=== PATIENT | female | born 1975 ===

== ENCOUNTER 2022-03-30 23:47 | Inpatient (IN) | payer OTHER ==
[~2022-03-30] VITALS: Ht 154.9 cm; Wt 69.5 kg
[2022-03-31 01:05] LABS: BASOPHILS ABSOLUTE AUTO 0.02 K/mm3 (0.00-0.23); BASOPHILS PERCENT AUTO 0 % (0-2); EOSINOPHILS ABSOLUTE AUTO 0.01 K/mm3 (0.00-0.68); EOSINOPHILS PERCENT AUTO 0 % (0-6); Hematocrit 34.6 % (33.0-51.0); Hemoglobin 12.1 g/dL (11.5-16.0); IMMATURE GRAN ABSOLUTE AUTO 0.14 K/mm3 (0.00-0.10); IMMATURE GRAN PERCENT AUTO 2 % (0-1); LYMPHOCYTES ABSOLUTE AUTO 0.79 K/mm3 (0.84-5.20); LYMPHOCYTES PERCENT AUTO 9 % (21-46); MONOCYTES ABSOLUTE AUTO 0.63 K/mm3 (0.16-1.47); MONOCYTES PERCENT AUTO 7 % (4-13); Mean Corpuscular HGB 25.6 pg (26.0-34.0); Mean Corpuscular Volume 73 fL (80-100); Mean Platelet Volume 11.1 fL (9.1-12.4); NEUTROPHILS ABSOLUTE AUTO 7.71 K/mm3 (1.96-9.15); NEUTROPHILS PERCENT AUTO 83 % (41-73); NRBC ABSOLUTE 0.13 K/mm3 (0.00-0.02); NRBC Auto 1.4 /100 WBC (0.0-0.2); Platelet Count 113 K/mm3 (150-400); RDW Coefficient Variation 20.9 % (11.7-14.2); RDW Standard Deviation 43.4 fL (35.1-46.3); Red Blood Cell Count 4.72 M/mm3 (3.80-5.20)
[2022-03-31 01:22] LABS: Alanine Aminotransfer (ALT/SGP 186 U/L (12-78); Albumin, Blood 3.3 g/dL (3.4-5.0); Albumin/Globulin Ratio 1.1 (0.8-1.8); Alk Phos 192 U/L (50-136); Anion Gap 19 mmol/L (6-16); Aspartate Aminotrans (AST/SGOT 266 U/L (12-37); Bilirubin, Total 3.8 mg/dL (0.1-1.0); Blood Urea Nitrogen 7 mg/dL (8-24); Bun/Creatinine Ratio 5.6 (12.0-20.0); CO2, Blood 23 mmol/L (21-32); Chloride, Blood 87 mmol/L (98-108); Creatinine, Blood 1.26 mg/dL (0.40-1.00); Glomerular Filtration Rate 46 (60-); Glucose, Blood 158 mg/dL (70-99); Potassium, Blood 2.7 mmol/L (3.5-5.5); Sodium, Blood 129 mmol/L (136-145); Total Protein, Blood 6.3 g/dL (6.4-8.2)
[2022-03-31 01:23] LABS: Magnesium, Blood 1.1 mg/dL (1.6-2.4)
[2022-03-31 02:37] LABS: Ethanol (Alcohol), Blood, Med <3 mg/dL
[2022-03-31 08:14] LABS: Anion Gap 14 mmol/L (6-16); Blood Urea Nitrogen 7 mg/dL (8-24); Bun/Creatinine Ratio 7.2 (12.0-20.0); CO2, Blood 24 mmol/L (21-32); Calcium, Blood 7.4 mg/dL (8.5-10.1); Chloride, Blood 95 mmol/L (98-108); Creatinine, Blood 0.98 mg/dL (0.40-1.00); Glomerular Filtration Rate >60 (60-); Glucose, Blood 143 mg/dL (70-99); Potassium, Blood 2.9 mmol/L (3.5-5.5); Sodium, Blood 133 mmol/L (136-145)
[2022-03-31 12:26] LABS: Anion Gap 13 mmol/L (6-16); Blood Urea Nitrogen 7 mg/dL (8-24); Bun/Creatinine Ratio 7.1 (12.0-20.0); CO2, Blood 25 mmol/L (21-32); Chloride, Blood 96 mmol/L (98-108); Creatinine, Blood 0.98 mg/dL (0.40-1.00); Glomerular Filtration Rate >60 (60-); Glucose, Blood 122 mg/dL (70-99); Potassium, Blood 2.9 mmol/L (3.5-5.5); Sodium, Blood 134 mmol/L (136-145)
--- NOTE | 2022-03-31 16:09 | NUR ---
SHIFT SUMMARY Pt arrived from the ER and was assisted over to the bed. She opens her eyes and mumbles her name but is not oriented and she is very fatigued. There was a consult for Namita and it was confirmed that her facesheet was placed in his folder in the ER. Dr Marcelo came to see the pt and ordered a yadav to be placed which was done and the UA was sent to the lab. She has a rash on her abdominal fold and some barrier cream was applied. Poison control called for an update and asked that another EKG be done since her last one showed a prolonged QT. They said they would call back in a few hours for another update. EKG was done and per television repairman she is is NSR in the 70's-80's. She is on camera monitoring for safety and has the bed alarm on. As of now she is sleeping and has not attempted to climb out of bed but per report she was combative in the ER. She can follow some directions at times. She has her call light in reach and is resting in bed.
[2022-03-31 17:58] LABS: U Amphetamine Screen Not Detected; U Barbituate Screen Not Detected; U Benzodiazapine Screen DETECTED; U Buprenorphine Screen DETECTED; U Cannabinoids Screen Not Detected; U Cocaine Screen Not Detected; U Methadone Screen Not Detected; U Methamphetamine Screen Not Detected; U Opiates Screen Not Detected; U Oxycodone Screen Not Detected; U Phencyclidine Screen Not Detected; U Propoxyphene Screen Not Detected
[2022-04-01 04:00] LABS: Hematocrit 29.2 % (33.0-51.0); Hemoglobin 9.8 g/dL (11.5-16.0); Mean Corpuscular HGB 25.9 pg (26.0-34.0); Mean Corpuscular HGB Conc 33.6 g/dL (31.5-36.5); Mean Corpuscular Volume 77 fL (80-100); Mean Platelet Volume 10.9 fL (9.1-12.4); NRBC ABSOLUTE 0.03 K/mm3 (0.00-0.02); NRBC Auto 0.4 /100 WBC (0.0-0.2); Platelet Count 92 K/mm3 (150-400); RDW Coefficient Variation 21.9 % (11.7-14.2); Red Blood Cell Count 3.79 M/mm3 (3.80-5.20); White Blood Cell Count 6.99 K/mm3 (4.00-11.30)
[2022-04-01 04:25] LABS: Alanine Aminotransfer (ALT/SGP 125 U/L (12-78); Albumin, Blood 2.7 g/dL (3.4-5.0); Alk Phos 157 U/L (50-136); Anion Gap 8 mmol/L (6-16); Aspartate Aminotrans (AST/SGOT 141 U/L (12-37); Bilirubin, Total 1.9 mg/dL (0.1-1.0); Blood Urea Nitrogen 6 mg/dL (8-24); Bun/Creatinine Ratio 7.3 (12.0-20.0); CO2, Blood 27 mmol/L (21-32); Calcium, Blood 7.7 mg/dL (8.5-10.1); Chloride, Blood 104 mmol/L (98-108); Creatinine, Blood 0.82 mg/dL (0.40-1.00); Globulin, Blood 2.6 g/dL (2.2-4.0); Glomerular Filtration Rate >60 (60-); Glucose, Blood 95 mg/dL (70-99); Magnesium, Blood 2.6 mg/dL (1.6-2.4); Potassium, Blood 2.8 mmol/L (3.5-5.5); Sodium, Blood 139 mmol/L (136-145); Thyroid Stimulating Hormone 0.977 uIU/mL (0.360-4.800); Total Protein, Blood 5.3 g/dL (6.4-8.2)
--- NOTE | 2022-04-01 07:13 | NUR ---
PT SUMMARY PT WOKE UP SEVERAL HOURS INTO SHIFT AND WANTED TO EAT AND DRINK. DID WELL SITTING UP AT SIDE OF BED IN CHAIR TO EAT DINNER. WAS DROWSY BUT ABLE TO FINISH MEAL. UNSTEADY ON FEET, NEEDED TWO PERSON ASSIST. VERBALIZED UNDERSTANDING OF INSTRUCTIONS THROUGH SHIFT FROM THIS RN DESPITE TANGENTIAL COMMENTS AND REMARKS. PT FREQUENTLY JOKES. HAS SOME DIFFICULTY EXPLAINING PAST EVENTS OR RECALLING HOW SHE CAME TO BE IN HOSPITAL. THOUGHT SHE WAS AT [facility]. DENIES PAIN. LETHARGIC. HAD AN EPISODE OF SIGNIFICANT APNEA IN THE NIGHT, SATS FELL INTO 60'S. PT WOKEN UP BY STAFF, SATS BACK TO 97-98% ON RA.
--- NOTE | 2022-04-01 08:00 | NUR ---
NURSING PCU DAYSHIFT: Assumed care of pt at approx 0700. Arouses to verbal stimuli, answers some questions appropriately though not oriented to date/location, impulsive at times but redirectable, able to converse but nonsensical at times. General weakness noted w/mild tremors, CIWA 12 at initial assessment. Denies pain/discomfort at rest. Scattered abrasions to LE's and lips, excoriation below pannus, no pressure ulcers noted. Tele in place, NSR, no c/o CP/pressure, SBP 130's, no noted edema, pulses palp. L/S cta t/o, O2 sat mid 90's on RA, no noted cough/dyspnea. Abd SNT, BT+, FC in place draining dark yellow urine. PIV x2, NS infusing @ 100cc/hr w/K+ rider as per d/o. No s/s of acute distress at time of a.m. assessment. Bed/chair alarms in use for safety purposes. OOB to BSC, shower, and chair w/one staff assist. Update provided to poison control, f/u EKG completed to assess QT which is noted to have improved. Seen by PMD, new d/o received, IVF discontinued, changed to medical status w/o tele, f/u K+ drawn and awaiting results, FC dc'd. Pt denies any current needs, call light in reach, cont to monitor for any changes.
[2022-04-01 13:11] LABS: Percent Saturation 21.3 % (15.0-50.0)
[2022-04-01 13:12] LABS: Potassium, Blood 3.1 mmol/L (3.5-5.5)
--- NOTE | 2022-04-01 17:37 | NUR ---
NURSING PCU DAYSHIFT SUMMARY: No significant changes noted t/o the shift, respiratory and cardiac status remain stable. Seen by PMD, new d/o received. F/U K+ drawn after rider completed, results reviewed w/PMD and medications administered as ordered. EKG completed, QTc improved, poison control updated. Seen by psychology consult, medications ordered, dictation reviewed. Changed to medical status w/o tele, awaiting bed assignment. Though tearful after psych consult, pt has been in good spirits and interactive w/the staff t/o the afternoon. Ambulated t/o unit w/o difficulty using FWW. Pt denies any current needs or questions regarding plan of care. Call light in reach and pt has been using w/o difficulty. Cont to monitor until rpt is given to ALVARO RN.
--- NOTE | 2022-04-01 20:48 | NUR ---
HYPERTENSION PROVIDER NOTIFIED THAT PATIENTS BP IS ELEVATED AND HE DID NOT WANT TO START ANYTHING NEW TONIGHT BUT WANTED DAYSHIFT TO ADDRESS IT. TRUCK LEASING MANAGER TOBY NOTIFIED.
[2022-04-02 04:35] LABS: Hematocrit 29.6 % (33.0-51.0); Hemoglobin 9.8 g/dL (11.5-16.0); Mean Corpuscular HGB 26.3 pg (26.0-34.0); Mean Corpuscular HGB Conc 33.1 g/dL (31.5-36.5); Mean Corpuscular Volume 80 fL (80-100); Mean Platelet Volume 10.6 fL (9.1-12.4); NRBC ABSOLUTE 0.09 K/mm3 (0.00-0.02); NRBC Auto 1.3 /100 WBC (0.0-0.2); Platelet Count 93 K/mm3 (150-400); RDW Coefficient Variation 23.3 % (11.7-14.2); RDW Standard Deviation 52.7 fL (35.1-46.3); Red Blood Cell Count 3.72 M/mm3 (3.80-5.20); White Blood Cell Count 6.98 K/mm3 (4.00-11.30)
[2022-04-02 04:58] LABS: Alanine Aminotransfer (ALT/SGP 116 U/L (12-78); Albumin, Blood 2.7 g/dL (3.4-5.0); Alk Phos 133 U/L (50-136); Anion Gap 6 mmol/L (6-16); Aspartate Aminotrans (AST/SGOT 136 U/L (12-37); Bilirubin, Total 0.9 mg/dL (0.1-1.0); Blood Urea Nitrogen 10 mg/dL (8-24); Bun/Creatinine Ratio 14.8 (12.0-20.0); CO2, Blood 26 mmol/L (21-32); Calcium, Blood 8.7 mg/dL (8.5-10.1); Chloride, Blood 108 mmol/L (98-108); Creatinine, Blood 0.68 mg/dL (0.40-1.00); Globulin, Blood 2.8 g/dL (2.2-4.0); Glomerular Filtration Rate >60 (60-); Glucose, Blood 85 mg/dL (70-99); Potassium, Blood 3.7 mmol/L (3.5-5.5); Sodium, Blood 140 mmol/L (136-145); Total Protein, Blood 5.5 g/dL (6.4-8.2)
--- NOTE | 2022-04-02 06:05 | NUR ---
CLIENT SERVER PROGRAMMER SUMMARY PT IS ALERT AND ORIENTED BUT MAKES COMMENTS DURING CONVERSATION THAT ARE NOT APPROPRIATE. PT ASKING ME ABOUT MY CLONE AND BEING PARANOID ABOUT OTHER STAFF. CIWA'S REMAIN VERY LOW W NO PHYSICAL S/S OF WITHDRAWL. PT AMBULATING W LITTLE TO NO ASSISTANCE THIS SHIFT. BP ELEVATED AT START OF THE SHIFT BUT WNL THIS AM. O2 SATS >90% ON RM AIR. PT COOPERATIVE W CARE THIS SHIFT. WILL REPORT TO ONCOMING RN.
--- NOTE | 2022-04-02 17:32 | NUR ---
SHIFT SUMMARY; ASSUMED CARE AT 0700. A/A/OX4. COOPERATIVE WITH CARE BUT FORGETFUL AND NEEDS REDIRECTED SEVERAL TIMES DURING SHIFT. UNSTEADY ON FEET, DISCUSSED NEEDING TO USE CALL LIGHT. BED ALARM ON. ASKS FOR SEROQUEL DURING SHIFT MULTIPLE TIMES. ASSESSED FOR ANXIETY AND CIWA PROTOCTOL FOLLOWED, MEDICATED MEDICALLY INDICATED. VSS, WILL CONTINUE TO MONITOR AND TREAT UNTIL CHANGE OF SHIFT.
[2022-04-03 04:06] LABS: Hematocrit 28.1 % (33.0-51.0); Hemoglobin 9.7 g/dL (11.5-16.0); Mean Corpuscular HGB 28.3 pg (26.0-34.0); Mean Corpuscular HGB Conc 34.5 g/dL (31.5-36.5); Mean Corpuscular Volume 82 fL (80-100); Mean Platelet Volume 10.7 fL (9.1-12.4); Platelet Count 105 K/mm3 (150-400); RDW Coefficient Variation 24.6 % (11.7-14.2); RDW Standard Deviation 49.1 fL (35.1-46.3); Red Blood Cell Count 3.43 M/mm3 (3.80-5.20); White Blood Cell Count 5.27 K/mm3 (4.00-11.30)
[2022-04-03 04:35] LABS: Albumin, Blood 2.5 g/dL (3.4-5.0); Albumin/Globulin Ratio 0.9 (0.8-1.8); Bilirubin, Total 0.7 mg/dL (0.1-1.0); Bun/Creatinine Ratio 22.8 (12.0-20.0); Calcium, Blood 8.7 mg/dL (8.5-10.1); Creatinine, Blood 0.66 mg/dL (0.40-1.00); Globulin, Blood 2.8 g/dL (2.2-4.0); Potassium, Blood 3.6 mmol/L (3.5-5.5); Total Protein, Blood 5.3 g/dL (6.4-8.2)
--- NOTE | 2022-04-03 06:13 | NUR ---
CLEANER LABORATORY EQUIPMENT SUMMARY PT BEGAN SHIFT VERY EMOTIONAL BEING TEARFUL AND PARANOID ABOUT CERTAIN STAFF MEMBERS. PT CALMER AFTER 2099 SEROQUEL GIVEN BUT CONTINUED TO BE REALLY ANXIOUS SO PRN SEROQUEL GIVEN. CIWA'S MOSTLY AT A 2 BUT WAS A 7 AT START OF THE SHIFT DUE TO ANXIETY SO ONE DOSE OF LORAZEPAM GIVEN. PT ABLE TO SLEEP FOR GOOD PART OF THIS SHIFT GETTING UP SEVERAL TIMES TO USE THE RESTROOM. BP STILL MODERATELY HIGH BUT STABLE. O2 SATS >92% ON RM AIR. WILL REPORT TO ONCOMING RN.
[2022-04-03 07:06] LABS: NRBC ABSOLUTE 0.04 K/mm3 (0.00-0.02); NRBC Auto 0.7 /100 WBC (0.0-0.2)
--- NOTE | 2022-04-03 11:14 | NUR ---
REPORT GIVEN TO SABINE DODSON ON MEDICAL FLOOR TO ASSUME CARE FOR IN HOUSE TRANSFER.
--- NOTE | 2022-04-03 12:00 | NUR ---
ARRIVAL TO 324 PT ARRIVED FROM PCU 3 IN W/C. TRANSFERRED IND TO BED. ORIENTED TO ROOM/CALL LIGHT/PHONE. IND IN ROOM. INSTRUCTED TO CALL FOR HELP WHEN WALKING AROUND UNIT. CALL LIGHT IN REACH.
--- NOTE | 2022-04-03 13:55 | NUR ---
AM ASSESSMENT I AGREE WITH AND WAS PRESENT DURING THE STUDENT RN ISAÍAS'S AM ASSESSMENT, AND HAVE REVIEWED AND AGREE WITH HER DOCUMENTATION ON THIS PATIENT
--- NOTE | 2022-04-03 16:36 | NUR ---
SHIFT SUMMARY PT A/O X4. CALM AND COOPERATIVE WITH CARE. PT HAD A EPISODE OF ANXIETY, AGITATION AND TEARS. PT ASKED FOR ATIVAN, WAS AGREEABLE TO TRY SEROQUIL FIRST. PT WENT FOR WALK, COMPLAINED OF PAIN, WAS TEARFUL AND ANXIOUS. ATIVAN 2MG GIVEN. PT WAS ABLE TO LAY DOWN AND REST. CALL LIGHT IN REACH
--- NOTE | 2022-04-03 21:14 | NUR ---
I WAS WITH STUDENT DURING ASSESSMENT. I AGREE WITH DOCUMENTATION.
--- NOTE | 2022-04-04 03:36 | NUR ---
RENAL DIALYSIS RN SUMMARY PT A/OX4. HAS BEEN COOPERATIVE DURING THE NIGHT. PT WAS RESTLESS AND AWAKE UNTIL 2400 AND THEN PERIODICALLY AFTER. PT STATED SHE WAS STARVING AND REQUESTED SNACK/SANDWICHES MULTPLE TIMES. PT BLOOD PRESSURE READINGS HAVE BEEN ELEVATED W/SBP IN 150'S. PT GIVEN PRN SEROQUEL 1X, AN PRN LIBRIUM 2X. CIWA ASSESMENTS Q4 HOURS.
--- NOTE | 2022-04-04 04:24 | NUR ---
I WAS WITH STUDENT DURING ASSESSMENT AND I AGREE WITH HER DOCUMENTATION
[2022-04-04 05:13] LABS: Hematocrit 29.8 % (33.0-51.0); Hemoglobin 9.5 g/dL (11.5-16.0); Mean Corpuscular HGB 26.2 pg (26.0-34.0); Mean Corpuscular HGB Conc 31.9 g/dL (31.5-36.5); Mean Corpuscular Volume 82 fL (80-100); Mean Platelet Volume 10.9 fL (9.1-12.4); NRBC ABSOLUTE 0.02 K/mm3 (0.00-0.02); NRBC Auto 0.4 /100 WBC (0.0-0.2); Platelet Count 112 K/mm3 (150-400); RDW Coefficient Variation 25.9 % (11.7-14.2); RDW Standard Deviation 53.9 fL (35.1-46.3); Red Blood Cell Count 3.63 M/mm3 (3.80-5.20); White Blood Cell Count 5.31 K/mm3 (4.00-11.30)
[2022-04-04 05:42] LABS: Albumin, Blood 2.6 g/dL (3.4-5.0); Albumin/Globulin Ratio 0.9 (0.8-1.8); Bilirubin, Total 0.5 mg/dL (0.1-1.0); Bun/Creatinine Ratio 25.3 (12.0-20.0); Calcium, Blood 8.2 mg/dL (8.5-10.1); Creatinine, Blood 0.75 mg/dL (0.40-1.00); Globulin, Blood 2.8 g/dL (2.2-4.0); Total Protein, Blood 5.4 g/dL (6.4-8.2)
--- NOTE | 2022-04-04 14:32 | NUR ---
am assessment I AGREE WITH AND WAS PRESENT DURING THE VERNON JOHNSON'S AM ASSESSMENT AND HAVE REVIEWED AND AGREE WITH HER DOCUMENTATION OF THIS PATIENT
[2022-04-04] MEDS ORDERED: Nicoderm Cq1 EAC1 TOP (15:30)
[2022-04-04] MEDS ORDERED: QUET300 PO (15:31)
[2022-04-04] MEDS ORDERED: QUET25 PO (15:31)
--- NOTE | 2022-04-04 19:06 | NUR ---
SHIFT SUMMARY PT A/O X 4. CALM AND COOPERATIVE WITH CARE. IND IN ROOM AND HALLWAYS. PT WAS TO BE DISCHARGED TODAY BEFORE 1900 SO SHE COULD OSTEOLOGIST HER MEDICATIONS. PT IS STILL WAITING AT THIS TIME FOR HER TRANSPORTATION. WASHER AND CRUSHER TENDER CHARGE NURSE AWARE AND CONTINUEING TO REACH TRANSPORT FOR THE PT THAT THE PAINTER BOTTOM HAD SET UP EARLYIER TODAY.
--- NOTE | 2022-04-04 19:32 | NUR ---
AM ASSESSMENT I AGREE WITH AND WAS PRESENT DURING THE STUDENT NURSE ISAÍAS'S AM ASSESSMENT, AND HAVE REVIEWED AND AGREE WITH HER DOCUMENTATION OF THIS PATIENT
== END 2022-04-04 21:40 | disposition home or self-care (01) | DRG 897 ==
LOC: ER 23:47 → PCU 23:48 → ERHOLD 23:48 → PCU 03-31 13:33 → MEDS 04-03 11:15
PROVIDERS: Internal Medicine; Student in an Organized Health Care Education/Training Program; ADMIT Family Medicine
PROC: HZ2ZZZZ Detoxification Services for Substance Abuse Treatment (ICD-10-PCS; principal; 2022-04-01)
DX: F10.139 Alcohol abuse with withdrawal, unspecified (principal); N17.9 Acute kidney failure, unspecified; E87.1 Hypo-osmolality and hyponatremia; E87.2 Acidosis; G93.40 Encephalopathy, unspecified; R09.02 Hypoxemia; D64.9 Anemia, unspecified; R45.1 Restlessness and agitation; F25.9 Schizoaffective disorder, unspecified; D69.59 Other secondary thrombocytopenia; E87.6 Hypokalemia; E83.42 Hypomagnesemia; F17.200 Nicotine dependence, unspecified, uncomplicated; R94.31 Abnormal electrocardiogram [ECG] [EKG]; Z98.84 Bariatric surgery status; Z88.8 Allergy status to other drugs, medicaments and biological substances
CPT/HCPCS: 36415; 51702; 70450; 80048; 80053; 82306; 82607; 82728; 82746; 83540; 83550; 83735; 84132; 84443; 85025; 85027; 93005; 93010; 96361; 96365; 96366; 96368; 96372; 96375; 96376; 99285-25; A9270; G0378; G0480; J0360; J2060; J3475; J3480; J7030; J7050